=== PATIENT | female | born 1965 | race Caucasian/White ===

== ENCOUNTER 2017-05-02 15:26 | Emergency (ER) | payer BC ==
[2017-05-02] MEDS ORDERED: KETOROLAC 30 MG/ML 1 ML VIAL IVP STA (15:38)
[2017-05-02] MEDS ORDERED: HYDROmorphone 2 MG/ML 1 ML SYRINGE IVP STA (15:38)
[2017-05-02] MEDS ORDERED: DIAZEPAM 5 MG/ML 2 ML SYRINGE IVP STA (15:38)
[2017-05-02] MEDS ORDERED: SODIUM CHLORIDE 0.9% 500 ML IV STA (15:38)
--- NOTE | 2017-05-02 15:39 | ED ---
General Adult HPI - General Chief complaint: Back Pain/Injury Stated complaint: Back Pain/Injury Time Seen by Provider: 05/02/17 15:29 Source: patient, EMS, RN notes reviewed, old records reviewed Mode of arrival: EMS Limitations: no limitations - History of Present Illness Initial comments: Fifth this is a 52-year-old female here for evaluation of back pain. Impression back pain acute exacerbation of chronic back pain. Patient severe back pain will come in with worsening pain. Uncontrolled pain. Patient states she can't walk secondary to pain. No neurological deficit no loss of bowel or bladder - Related Data Home Medications Medication Instructions Recorded Confirmed Baclofen [Lioresal] 5 mg PO BID 05/02/17 05/02/17 Estradiol [Estrace] 1 mg PO DAILY 05/02/17 05/02/17 Gabapentin [Neurontin] 200 mg PO BID 05/02/17 05/02/17 HYDROcodone/APAP 10-325MG [[place] 1 tab PO Q6H PRN 05/02/17 05/02/17 10-325] hydrOXYzine PAMOATE [Vistaril] 25 mg PO Q6H PRN 05/02/17 05/02/17 methylPREDNISolone Dose Pack See Taper PO DAILY 05/02/17 05/02/17 [Medrol Dose Pack] Allergies Allergy/AdvReac Type Severity Reaction Status Date / Time Sulfa (Sulfonamide Allergy Rash/Hives Verified 05/02/17 15:39 Antibiotics) Review of Systems ROS Statement: Those systems with pertinent positive or pertinent negative responses have been documented in the HPI. ROS Other: All systems not noted in ROS Statement are negative. Past Medical History Past Medical History: Asthma Additional Past Medical History / Comment(s): Herniated Disc-L5, S1. History of Any Multi-Drug Resistant Organisms: None Reported Past Surgical History: Cholecystectomy, Hysterectomy, Tonsillectomy Additional Past Surgical History / Comment(s): Left nephrectomy, Past Psychological History: No Psychological Hx Reported Smoking Status: Never smoker Past Alcohol Use History: None Reported Past Drug Use History: None Reported General Exam Limitations: no limitations General appearance: alert, in no apparent distress Head exam: Present: atraumatic, normocephalic, normal inspection Eye exam: Present: normal appearance, PERRL, EOMI. Absent: scleral icterus, conjunctival injection, periorbital swelling ENT exam: Present: normal exam, mucous membranes moist Neck exam: Present: normal inspection. Absent: tenderness, meningismus, lymphadenopathy Respiratory exam: Present: normal lung sounds bilaterally. Absent: respiratory distress, wheezes, rales, rhonchi, stridor Cardiovascular Exam: Present: regular rate, normal rhythm, normal heart sounds. Absent: systolic murmur, diastolic murmur, rubs, gallop, clicks GI/Abdominal exam: Present: soft, normal bowel sounds. Absent: distended, tenderness, guarding, rebound, rigid Extremities exam: Present: normal inspection, full ROM, normal capillary refill. Absent: tenderness, pedal edema, joint swelling, calf tenderness Back exam: Present: normal inspection Neurological exam: Present: alert, oriented X3, CN II-XII intact Psychiatric exam: Present: normal affect, normal mood Skin exam: Present: warm, dry, intact, normal color. Absent: rash Course Vital Signs 05/02/17 05/02/17 15:27 16:05 Temperature 98.0 F Pulse Rate 62 65 Respiratory 18 18 Rate Blood Pressure 147/67 133/89 O2 Sat by Pulse 97 98 Oximetry - Reevaluation(s) Reevaluation #1: 05/02/17 17:28 Pain resolved Medical Decision Making - Medical Decision Making 52 female EF reevaluation again by back pain. Back pain improved at this time, patient is anicteric, patient will be discharged home Disposition Clinical Impression: Mechanical back pain, Strain of lumbar region, Sciatica Disposition: HOME SELF-CARE Condition: Good Instructions: Acute Low Back Pain (ED), Chronic Back Pain (ED) Referrals: Rigo Reynolds MD [Primary Care Provider] - 1-2 days
[2017-05-02] MEDS ORDERED: ACETAMINOPHEN IV (For NPO) 1,000 MG in EMPTY BAG 1 BAG IVPB STA (15:40)
[2017-05-02 17:38] VITALS: BP 156/74; PULSE 55; RESP 16; TEMP 98
== END 2017-05-02 17:40 | disposition home or self-care (01) ==
LOC: EC 15:26
DX: S39.012A Strain of muscle, fascia and tendon of lower back, initial encounter (principal); M54.40 Lumbago with sciatica, unspecified side; Z79.3 Long term (current) use of hormonal contraceptives; Z79.899 Other long term (current) drug therapy; Z88.2 Allergy status to sulfonamides
CPT/HCPCS: 99284; 96374; 96375 ×2; 96361; J1170; J3360; J1885; J0131